=== PATIENT | female | born 1960 | race African-American/Black ===

== ENCOUNTER → 2017-07-25 | Outpatient (CLI) | payer OTHER, BC | END | disposition home or self-care (01) | LOC: MAMMO 13:53 | DX: Z12.31 Encounter for screening mammogram for malignant neoplasm of breast (principal); Z85.3 Personal history of malignant neoplasm of breast | CPT/HCPCS: 77067 ==

== ENCOUNTER 2019-12-04 12:03 | Emergency (ER) | payer OTHER, BC ==
[~2019-12-04] VITALS: Ht 160 cm; Wt 90.1 kg
[~2019-12-04 12:03] MED LIST: ACET-704 PO; CLOB15CR TP
--- NOTE | 2019-12-04 12:26 | PHYS DOC ---
Past Medical History Past Medical History: Cancer, Other Additional Past Medical Histor: BREAST CANCER Past Surgical History: , Other Additional Past Surgical Histo: LEFT MASTECTOMY,UTERINE FIBROIDS REMOVED Smoking Status: Never Smoker Alcohol Use: Rarely Drug Use: None General Adult EDM: Chief Complaint: ABDOMINAL PAIN HPI: HPI: Patient is a 59 year old female who presented to ER today for evaluation of right lower abdominal pain that started 2 days ago. Patient denies any nausea vomiting, no diarrhea, no cough or fever. Patient still have her appendix. Nothing makes the pain worse or better. Patient denies any urinary symptom. Patient has a history of breast cancer with status post left mastectomy. Patient is in remission. Review of Systems: Review of Systems: Constitutional: Denies fever or chills. [] Eyes: Denies change in visual acuity. [] HENT: Denies nasal congestion or sore throat. [] Respiratory: Denies cough or shortness of breath. [] Cardiovascular: Denies chest pain or edema. [] GI: Positive for abdominal pain, no nausea, vomiting, bloody stools or diarrhea. [] : Denies dysuria. [] Musculoskeletal: Denies back pain or joint pain. [] Integument: Denies rash. [] Neurologic: Denies headache, focal weakness or sensory changes. [] Endocrine: Denies polyuria or polydipsia. [] Lymphatic: Denies swollen glands. [] Psychiatric: Denies depression or anxiety. [] Heart Score: Risk Factors: Risk Factors: DM, Current or recent (<one month) smoker, HTN, HLP, family history of CAD, obesity. Risk Scores: Score 0 - 3: 2.5% MACE over next 6 weeks - Discharge Home Score 4 - 6: 20.3% MACE over next 6 weeks - Admit for Clinical Observation Score 7 - 10: 72.7% MACE over next 6 weeks - Early Invasive Strategies Allergies: Allergies: Allergies Coded Allergies Type Severity Reaction Last Updated Verified No Known Drug Allergies 05/03/15 No Physical Exam: PE: Constitutional: Well developed, well nourished, no acute distress, non-toxic appearance. [] HENT: Normocephalic, atraumatic, bilateral external ears normal, oropharynx moist, no oral exudates, nose normal. [] Eyes: PERRLA, EOMI, conjunctiva normal, no discharge. [] Neck: Normal range of motion, no tenderness, supple, no stridor. [] Cardiovascular:Heart rate regular rhythm, no murmur [] Lungs & Thorax: Bilateral breath sounds clear to auscultation [] Abdomen: Bowel sounds normal, soft, there is tenderness to palpation in the ri ght lower abdominal area, periumbilical area, suprapubic area, no masses, no pulsatile masses. [] Skin: Warm, dry, no erythema, no rash. [] Back: No tenderness, no CVA tenderness. [] Extremities: No tenderness, no cyanosis, no clubbing, ROM intact, no edema. [] Neurologic: Alert and oriented X 3, normal motor function, normal sensory function, no focal deficits noted. [] Psychologic: Affect normal, judgement normal, mood normal. [] Current Patient Data: Labs: Laboratory Tests Test 12/04/19 12:41 12/04/19 13:20 White Blood Count 5.1 x10^3/uL Red Blood Count 4.29 x10^6/uL Hemoglobin 13.2 g/dL Hematocrit 37.3 % Mean Corpuscular Volume 87 fL Mean Corpuscular Hemoglobin 31 pg Mean Corpuscular Hemoglobin Concent 35 g/dL Red Cell Distribution Width 13.8 % Platelet Count 269 x10^3/uL Neutrophils (%) (Auto) 56 % Lymphocytes (%) (Auto) 35 % Monocytes (%) (Auto) 7 % Eosinophils (%) (Auto) 1 % Basophils (%) (Auto) 1 % Neutrophils # (Auto) 2.9 x10^3/uL Lymphocytes # (Auto) 1.8 x10^3/uL Monocytes # (Auto) 0.4 x10^3/uL Eosinophils # (Auto) 0.1 x10^3/uL Basophils # (Auto) 0.1 x10^3/uL Prothrombin Time 15.6 SEC Prothromb Time International Ratio 1.3 Activated Partial Thromboplast Time 39 SEC Sodium Level 138 mmol/L Potassium Level 3.9 mmol/L Chloride Level 104 mmol/L Carbon Dioxide Level 24 mmol/L Anion Gap 10 Blood Urea Nitrogen 9 mg/dL Creatinine 0.6 mg/dL Estimated GFR (Cockcroft-Gault) 123.4 BUN/Creatinine Ratio 15 Glucose Level 86 mg/dL Calcium Level 8.8 mg/dL Total Bilirubin 1.1 mg/dL Aspartate Amino Transf (AST/SGOT) 23 U/L Alanine Aminotransferase (ALT/SGPT) 17 U/L Alkaline Phosphatase 70 U/L Total Protein 7.5 g/dL Albumin 3.3 g/dL Albumin/Globulin Ratio 0.8 Lipase 72 U/L Urine Collection Type Void Urine Color Yellow Urine Clarity Clear Urine pH 6.0 Urine Specific [place] 1.010 Urine Protein Negative mg/dL Urine Glucose (UA) Negative mg/dL Urine Ketones (Stick) Negative mg/dL Urine Blood Negative Urine Nitrite Negative Urine Bilirubin Negative Urine Urobilinogen Dipstick 0.2 mg/dL Urine Leukocyte Esterase Trace Urine RBC 0 /HPF Urine WBC Rare /HPF Urine Squamous Epithelial Cells Occ /LPF Urine Bacteria Few /HPF Urine Mucus Slight /LPF Current Medications Medications (Trade) Dose Ordered Sig/Lisa Route PRN Reason Start Time Stop Time Status Last Admin Dose Admin Iohexol (Omnipaque 300 Mg/ml) 100 ml 1X ONCE IV 12/04/19 13:30 12/04/19 13:31 DC 12/04/19 13:42 Info (CONTRAST GIVEN -- Rx MONITORING) 1 each PRN DAILY PRN MC SEE COMMENTS 12/04/19 13:45 12/06/19 13:44 EKG: EKG: [] Radiology/Procedures: Radiology/Procedures: [[facility] [address] [place], [place] [id number] IMAGING REPORT Signed PATIENT: ABIOLA LIVE ACCOUNT: [id number] : 1960 LOCATION: ER AGE: 59 SEX: F EXAM STATUS: REG ER ORD. PHYSICIAN: SHORTY CHATTERJEE DO REASON: RLQ PAIN PROCEDURE: CT ABD PELV W/ IV CONTRST ONLY CT scan of the abdomen and pelvis with contrast 12/04/2019 CLINICAL HISTORY: Right lower quadrant abdominal pain. TECHNIQUE: After the intravenous administration of 75 cc of Omnipaque 300 only, contiguous, 5 mm axial sections were obtained through the abdomen and pelvis. One or more of the following individualized dose reduction techniques were utilized for this study: 1. Automated exposure control. 2. Adjustment of the mA and/or kV according to patient size. 3. Use of iterative reconstruction technique. FINDINGS: Images through the lung bases demonstrate mild cardiomegaly. A 2.8 cm rounded low-attenuation lesion is seen involving the right lobe of liver which likely represents a hepatic cyst. The spleen, pancreas, adrenal glands and kidneys are within normal limits. The abdominal aorta tapers normally. The gallbladder is contracted. No free fluid or free air is seen within the abdomen. There is no evidence of bowel obstruction. There is a small umbilical hernia which measures 2.4 cm in size. The appendix is well-visualized and is within normal limits. Images through the pelvis demonstrate the urinary bladder distended with urine. Calcifications are seen within the pelvis consistent with phleboliths. A 3.2 cm oval-shaped fat-containing mass is seen within the right adnexa consistent with a dermoid cyst/teratoma. No free fluid is seen. Very mild S-shaped curvature of the thoracic lumbar spine is seen. Degenerative changes are seen involving the lower thoracic and throughout the lumbar spine. IMPRESSION: 1. 3.2 cm oval-shaped fat-containing mass is seen in the right adnexa consistent with a dermoid cyst/teratoma. 2. No acute abnormality is seen. Electronically signed by: Dewey Smith MD (12/04/2019 2:02 PM) [id number] DICTATED and SIGNED BY: DEWEY SMITH MD DATE: 12/04/19 140 Course & Med Decision Making: Course & Med Decision Making Pertinent Labs and Imaging studies reviewed. (See chart for details) Patient is a 59-year-old female who was evaluated in the ER due to right side abdominal pain, CT scan of her abdomen pelvic show she had a 3.2 cm cyst on the right adnexa area consistent with teratoma or ovarian cyst. Patient will be discharged home, she will follow-up with her delivery tech for further evaluation. At time of discharge patient denies any abdominal pain, no nausea vomiting, no fever. Dragon Disclaimer: Dragon Disclaimer: This electronic medical record was generated, in whole or in part, using a voice recognition dictation system. Departure Departure Impression: Primary Impression: Unspecified ovarian cyst, right side Disposition: 01 HOME, SELF-CARE Condition: STABLE Referrals: NO PCP (PCP) MARLEN LAUGHLIN Jr, MD PLEASE CALL THIS TUMBLER TENDER DOCTOR FOR FOLLOW UP NEXT WEEK. Patient Instructions: Ovarian Cyst Justicifation of Admission Dx: Justifications for Admission: Justification of Admission Dx: N/A SHORTY CHATTERJEE DO Dec 04, 2019 12:25
[2019-12-04 13:01] LABS: CALCIUM 8.8 mg/dL (8.5-10.1); CREATININE 0.6 mg/dL (0.6-1.0); GFR 123.4; POTASSIUM 3.9 mmol/L (3.5-5.1)
[2019-12-04 13:04] LABS: ALBUMIN 3.3 g/dL (3.4-5.0); ALBUMIN/GLOBULIN RATIO 0.8 (1.0-1.7); TOTAL BILIRUBIN 1.1 mg/dL (0.2-1.0); TOTAL PROTEIN 7.5 g/dL (6.4-8.2)
[2019-12-04 13:14] LABS: BASO # 0.1 x10^3/uL (0.0-0.2); BASO % 1 % (0-3); EOS # 0.1 x10^3/uL (0.0-0.7); EOS % 1 % (0-3); HEMATOCRIT 37.3 % (36.0-47.0); HEMOGLOBIN 13.2 g/dL (12.0-15.5); LYMPH # 1.8 x10^3/uL (1.0-4.8); LYMPH % 35 % (24-48); MEAN CORPUSCULAR HEMOGLOBIN 31 pg (25-35); MEAN CORPUSCULAR HGB CONC 35 g/dL (31-37); MEAN CORPUSCULAR VOLUME 87 fL (79-100); MONO # 0.4 x10^3/uL (0.0-1.1); MONO % 7 % (0-9); NEUT # 2.9 x10^3/uL (1.8-7.7); NEUT % 56 % (31-73); PLATELET COUNT 269 x10^3/uL (140-400); RED BLOOD COUNT 4.29 x10^6/uL (3.50-5.40); RED CELL DISTRIBUTION WIDTH 13.8 % (11.5-14.5); WHITE BLOOD COUNT 5.1 x10^3/uL (4.0-11.0)
[2019-12-04 13:25] LABS: PROTHROMBIN TIME PATIENT 15.6 SEC (11.7-14.0)
[2019-12-04] MEDS ORDERED: IOHEXOL 300 MG/ML 100ML VIAL. IV ONE (13:30)
[2019-12-04 13:36] LABS: BILIRUBIN,URINE NEGATIVE (NEG); CLARITY,URINE CLEAR; COLOR,URINE YELLOW; NITRITE,URINE NEGATIVE (NEG); PROTEIN,URINE NEGATIVE (NEG-TRACE); UROBILINOGEN,URINE 0.2 mg/dL (0.2 mg/dL)
[2019-12-04 13:45] VITALS: BP 146/70
[2019-12-04] MEDS ORDERED: CONTRAST GIVEN. MC PRN (13:45)
[2019-12-04 13:54] LABS: BACTERIA,URINE FEW /HPF (0-FEW); RBC,URINE 0 /HPF (0-2); SQUAMOUS EPITHELIAL CELL,UR OCC /LPF; WBC,URINE RARE /HPF (0-4)
--- NOTE | 2019-12-04 14:05 | RAD ---
CT scan of the abdomen and pelvis with contrast 12/04/2019 CLINICAL HISTORY: Right lower quadrant abdominal pain. TECHNIQUE: After the intravenous administration of 75 cc of Omnipaque 300 only, contiguous, 5 mm axial sections were obtained through the abdomen and pelvis. One or more of the following individualized dose reduction techniques were utilized for this study: 1. Automated exposure control. 2. Adjustment of the mA and/or kV according to patient size. 3. Use of iterative reconstruction technique. FINDINGS: Images through the lung bases demonstrate mild cardiomegaly. A 2.8 cm rounded low-attenuation lesion is seen involving the right lobe of liver which likely represents a hepatic cyst. The spleen, pancreas, adrenal glands and kidneys are within normal limits. The abdominal aorta tapers normally. The gallbladder is contracted. No free fluid or free air is seen within the abdomen. There is no evidence of bowel obstruction. There is a small umbilical hernia which measures 2.4 cm in size. The appendix is well-visualized and is within normal limits. Images through the pelvis demonstrate the urinary bladder distended with urine. Calcifications are seen within the pelvis consistent with phleboliths. A 3.2 cm oval-shaped fat-containing mass is seen within the right adnexa consistent with a dermoid cyst/teratoma. No free fluid is seen. Very mild S-shaped curvature of the thoracic lumbar spine is seen. Degenerative changes are seen involving the lower thoracic and throughout the lumbar spine. IMPRESSION: 1. 3.2 cm oval-shaped fat-containing mass is seen in the right adnexa consistent with a dermoid cyst/teratoma. 2. No acute abnormality is seen. Electronically signed by: Dewey Smith MD (12/04/2019 2:02 PM) [id number]
== END 2019-12-04 15:01 | disposition home or self-care (01) ==
LOC: ER 12:03
DX: N83.201 Unspecified ovarian cyst, right side (principal); Z90.12 Acquired absence of left breast and nipple
CPT/HCPCS: 36415; 74177; 80053; 81001; 83690; 85025; 85610; 85730; 87086; 99285; Q9967

== ENCOUNTER → 2020-01-25 | Outpatient (CLI) | payer OTHER, BC ==
[~2020-01-25] MED LIST changes: +HYDR-2761 PO; +MULT-496 PO
--- NOTE | 2020-01-25 13:50 | EKG ---
[facility] [address] [place] [address] Test Date: 2020-01-25 Test Time: 13:46:49 Pat Name: ABIOLA LIVE Department: Room: Gender: F Park Interpretive Specialist: DESMOND : 1960 Requested By: XIN BAUMAN Order Number: [id number] Reading MD: Fredo Neal Measurements Intervals [place] Rate: 66 P: 67 IL: 168 QRS: -26 QRSD: 90 T: 27 QT: 428 QTc: 451 Interpretive Statements SINUS RHYTHM LEFTWARD AXIS OTHERWISE NORMAL ECG RI6.01 Compared to ECG 05/03/2015 11:53:50 T-wave abnormality no longer present Electronically Signed On 01-29-2020 9:46:47 CDT by Fredo Neal
[2020-01-25 13:57] LABS: BASO % 0 % (0-3); EOS % 1 % (0-3); HEMATOCRIT 37.4 % (36.0-47.0); LYMPH # 1.8 x10^3/uL (1.0-4.8); LYMPH % 30 % (24-48); MEAN CORPUSCULAR HEMOGLOBIN 30 pg (25-35); MEAN CORPUSCULAR HGB CONC 35 g/dL (31-37); MEAN CORPUSCULAR VOLUME 87 fL (79-100); MONO # 0.4 x10^3/uL (0.0-1.1); MONO % 6 % (0-9); NEUT # 3.8 x10^3/uL (1.8-7.7); NEUT % 63 % (31-73); PLATELET COUNT 300 x10^3/uL (140-400); RED CELL DISTRIBUTION WIDTH 13.5 % (11.5-14.5); WHITE BLOOD COUNT 6.1 x10^3/uL (4.0-11.0)
[2020-01-25 13:59] LABS: BILIRUBIN,URINE NEGATIVE (NEG); CLARITY,URINE CLEAR; COLOR,URINE YELLOW; NITRITE,URINE NEGATIVE (NEG); PROTEIN,URINE NEGATIVE (NEG-TRACE); UROBILINOGEN,URINE 0.2 mg/dL (0.2 mg/dL)
[2020-01-25 14:08] LABS: SQUAMOUS EPITHELIAL CELL,UR MOD /LPF
[2020-01-25 14:10] LABS: BACTERIA,URINE FEW /HPF (0-FEW)
[2020-01-25 14:19] LABS: ALBUMIN 3.5 g/dL (3.4-5.0); ALBUMIN/GLOBULIN RATIO 0.8 (1.0-1.7); CALCIUM 9.2 mg/dL (8.5-10.1); CREATININE 0.8 mg/dL (0.6-1.0); GFR 88.5; POTASSIUM 3.7 mmol/L (3.5-5.1); TOTAL BILIRUBIN 0.7 mg/dL (0.2-1.0)
--- NOTE | 2020-01-29 10:50 | NUR ---
Faxed pretesting results to Dr Fischer's office.
== END | disposition home or self-care (01) ==
LOC: SURGPAT 12:11
PROVIDERS: ATTEND Obstetrics & Gynecology
DX: Z01.818 Encounter for other preprocedural examination (principal); Z11.59 Encounter for screening for other viral diseases
CPT/HCPCS: 36415; 80053; 81001; 85025; 93005; U0003

== ENCOUNTER 2020-01-30 06:07 | Observation (INO) | payer OTHER, BC ==
[~2020-01-30] VITALS: Ht 160 cm; Wt 91.8 kg
[2020-01-30] VITALS (12 sets, daily range): BP systolic 98–125; BP diastolic 52–71
[~2020-01-30 06:07] MED LIST changes: -HYDR-2761 PO
[2020-01-30] MEDS: IV RINGERS,LACTATED 1000ML 1,000 ML IV SCH ×2 (06:53→11:20)
[2020-01-30] MEDS ORDERED: PROCHLORPERAZINE 10 MG/2 ML VIAL. IV PRN (07:00)
[2020-01-30] MEDS ORDERED: fentaNYL PF VIAL 100 MCG/2 ML VIAL IV PRN ×2 (07:00)
[2020-01-30] MEDS ORDERED: HYDROmorphone 2 MG/ML VIAL IV PRN (07:00)
[2020-01-30] MEDS ORDERED: LIDOCAINE 1% PF 2 ML VIAL. ID PRN (07:00)
[2020-01-30] MEDS ORDERED: MORPHINE SULFATE 2 MG/ML VIAL. IV PRN ×2 (07:00→11:15)
[2020-01-30] MEDS ORDERED: ONDANSETRON PF 4 MG/2 ML VIAL. IV PRN ×2 (07:00→11:15)
[2020-01-30] MEDS ORDERED: ROCURONIUM 50 MG/5 ML VIAL. ONE ×2 (07:04→08:11)
[2020-01-30] MEDS ORDERED: fentaNYL PF VIAL 250 MCG/5 ML VIAL ONE (07:04)
[2020-01-30] MEDS ORDERED: BUPIVACAINE-EPI 0.25%-1:200000 MPF 30 ML VIAL. ONE (07:04)
[2020-01-30] MEDS ORDERED: MIDAZOLAM HCL/PF 2 MG/2 ML VIAL. ONE (07:04)
[2020-01-30] MEDS ORDERED: ESTROGENS, CONJ VAGINAL CREAM 30GM TUBE. ONE (07:04)
[2020-01-30] MEDS ORDERED: INDIGOTINDISULFONATE SODIUM 40 MG/5 ML AMPUL. ONE (07:04)
[2020-01-30] MEDS ORDERED: DEXAMETHASONE SOD PHOS 4 MG/ML VIAL ONE (07:58)
[2020-01-30] MEDS ORDERED: ONDANSETRON PF 4 MG/2 ML VIAL. ONE (07:58)
[2020-01-30] MEDS ORDERED: NEOSTIGMINE METHYLSULFATE 5 MG/5 ML SYRINGE. ONE (08:44)
[2020-01-30] MEDS ORDERED: GLYCOPYRROLATE 1 MG/5 ML VIAL. ONE (08:44)
[2020-01-30] MEDS ORDERED: PHENYLEPHRINE 10 MG/ML VIAL. ONE (08:53)
[2020-01-30] MEDS ORDERED: KETOROLAC 30 MG/ML VIAL. ONE (09:05)
[2020-01-30] MEDS ORDERED: PROPOFOL 10 MG/ML (20ML) VIAL. IV ONE (10:37)
[2020-01-30] MEDS ORDERED: fentaNYL PF VIAL 100 MCG/2 ML VIAL ONE (10:45)
--- NOTE | 2020-01-30 11:09 | PDOC ---
BRIEF OPERATIVE NOTE Date: Jan 30, 2020 Pre-Op Diagnosis right adnexal mass Post-Op Diagnosis normal uterus, bilateral tubes and ovaries; right pelvic mass not adnexal Procedure Performed LAVH/BSO Surgeon Dr. Bauman Gardening Supervisor SAM Clark Anesthesiologist Dr. Aragon Anesthesia Type: General Blood Loss 500cc IV Fluid 1600cc Urine Output 700cc clear via lechuga Specimens Obtained cervix, uterus, bilateral tubes and ovaries Findings normal uterus, bilateral tubes and ovaries; 3cm pelvic mass right side at groin area near pubic bone/ant abdominal wall area laterally; got intraop consult with the pics with Dr. Baca and he recommended MRI in 6 week post op period and seeing him as an outpatient to follow up after the MRI to better evaluate it Complications none Operative Note [id number] XIN BAUMAN MD Jan 30, 2020 11:09
[2020-01-30] MEDS ORDERED: MAG HYDROX/ALUMINUM HYD/SIMETH 30 ML ORAL.SUSP PO PRN (11:15)
[2020-01-30] MEDS ORDERED: CALCIUM CARBONATE 500 MG TAB.CHEW PO PRN (11:15)
[2020-01-30] MEDS ORDERED: diphenhydrAMINE HCL 25 MG CAPSULE PO PRN (11:15)
[2020-01-30] MEDS ORDERED: ZOLPIDEM 5 MG TABLET. PO PRN (11:15)
[2020-01-30] MEDS ORDERED: LACTULOSE 20 GM/30 ML SOLUTION. PO PRN (11:15)
[2020-01-30] MEDS ORDERED: MAGNESIUM HYDROXIDE 2,400 MG/30 ML ORAL.SUSP. PO PRN (11:15)
[2020-01-30] MEDS ORDERED: NALOXONE 0.4 MG/ML VIAL. IV PRN (11:15)
[2020-01-30] MEDS ORDERED: diphenhydrAMINE 50 MG/ML VIAL IV PRN (11:15)
[2020-01-30] MEDS ORDERED: oxyCODONE/APAP 5/325 1 TAB TABLET PO PRN (11:15)
[2020-01-30] MEDS ORDERED: SIMETHICONE 80 MG TAB.CHEW PO PRN (11:15)
[2020-01-30] MEDS ORDERED: HYDROcodone/APAP 5/325MG 1 TAB TABLET PO PRN (11:15)
[2020-01-30] MEDS ORDERED: 0.9 % SODIUM CHLORIDE 10 ML DISP.SYRIN. IV PRN (11:15)
[2020-01-30 11:53] LABS: HEMATOCRIT 31.2 % (36.0-47.0); HEMOGLOBIN 10.8 g/dL (12.0-15.5); RED BLOOD COUNT 3.59 x10^6/uL (3.50-5.40); RED CELL DISTRIBUTION WIDTH 13.5 % (11.5-14.5); WHITE BLOOD COUNT 12.6 x10^3/uL (4.0-11.0)
--- NOTE | 2020-01-30 12:30 | NUR ---
Pt admitted from PACU to room 331 per bed. Pt assessed and oriented to room and frequent VS started. Pt drowsy from S/P LAVH but arousable to verbal stimulus. Incisions D/I and pt denies pain at this time, will continue to monitor and support.
--- NOTE | 2020-01-30 14:10 | OP ---
DATE OF SURGERY: 01/30/2020 The patient is a 59-year-old female. PREOPERATIVE DIAGNOSES: Right adnexal mass with history of a mastectomy and breast cancer, desiring definitive therapy. POSTOPERATIVE DIAGNOSES: She actually had a normal uterus, bilateral tubes and ovaries. It was not an adnexal mass, but she does have about a 3 cm pelvic mass that I had an intraoperative consult with Dr. Baca with suggesting an MRI in the postoperative period. The 6-week postop period and following up with him as an outpatient. Unsure as to whether it is a lipoma or another soft tissue mass, possible hernia or what, it did feel kind of rubbery and it was not solid-solid, but it was not liquid either, it was like a soft tissue or rubbery consistency. PROCEDURE: Laparoscopic-assisted vaginal hysterectomy, bilateral salpingo-oophorectomy. SURGEON: Xin Fischer MD DIGITAL EXPERIENCE MANAGER: SAM Clark ANESTHESIOLOGIST: Rowdy Bullock MD ANESTHESIA: General. BLOOD LOSS: 500 mL. URINE OUTPUT: 700 mL clear via Curran catheter. INTRAVENOUS FLUIDS: 1600 mL of crystalloid. SPECIMENS: Cervix, uterus, bilateral tubes and ovaries. FINDINGS: Again, she had a normal right upper quadrant, mild adhesions over on the right side where her colon and appendix would be. She did have a normal uterus, tubes and ovaries. A 3 cm right left-sided pelvic mass at the groin area just above the pubic bone near the anterior abdominal wall laterally. Again, the intraoperative consult with the pictures with Dr. Baca recommended an MRI in the 6-week postoperative period to evaluate it further and then he would consult as an outpatient. COMPLICATIONS: None. DESCRIPTION OF PROCEDURE: This patient was taken to the operating room where general anesthesia was placed. The patient was placed in the dorsal lithotomy position in [facility]. The patient's abdomen and vagina were both prepped and draped in the normal sterile fashion and a Curran catheter had been inserted under sterile technique. Upon my arrival, a timeout was performed. Once everyone agreed on the patient, site, procedure, antibiotics, the procedure was initiated. A bivalve speculum was placed in the patient's vagina. A single-tooth tenaculum was used to grasp the anterior lip of the cervix. A 10 mL of 0.25% Marcaine with epinephrine was used to circumferentially inject around the cervix for both hemodissection and hemostatic purposes later. The Valtchev uterine manipulator was placed through the endocervical os, locked on the single tooth tenaculum and the bivalve speculum was then removed. Top gloves were discarded and changed. Attention was then turned to the abdomen where a left upper quadrant entry was planned as she had a small umbilical reducible hernia present on exam even in the office and the patient was aware, so a small incision was made and just under the rib cage and mid area down a couple of centimeters carried down to the underlying layer with a curved Aggie. The 5 mm Visiport was used to directly enter the abdominal cavity. Opening patient pressure was 3-4 mmHg. Carbon dioxide gas was used to then appropriately insufflate the abdominal cavity to maintain a pressure of 15 mmHg. The patient was placed in Trendelenburg position. The umbilical area did not have any bowel or anything stuck up in it. It did appear to have a fascial defect with hernia, but it was clear, but we avoided that area anyway. We placed right and left lower quadrant ports. Finding an area clear of any vasculature, making a small incision and placing 5 mm atraumatic trocars in under direct visualization without difficulty. A 4-5 mL of air was placed in the trocar cuffs of these. The camera was then moved to look at the left upper quadrant port, it was clear, so 4-5 mL of air was placed in this cuff as well. At this point, the camera was moved back to the left upper quadrant, the patient was placed in Trendelenburg position and the procedure was initiated. The left tube and ovary were elevated. They were small atrophic and normal. Finding the vessel and the ureter low, staying high on the ovary, hugging the ovary with the LigaSure, cauterizing and cutting, going under the tube over to the uterus, crossing the left round ligament and hugging the uterus and staying down on that side. This was done exactly the same on the right side. The right tube and ovary were actually normal. There was no right adnexal mass as the sonogram had suggested. There was a 3 cm pelvic mass, very lateral to the adnexa that was down on the sidewall and just under the pubic bone. I was unsure whether it was the hernia or a lipoma or what it was. I did end up after taking the tube and ovary off or getting it taking the edge of the LigaSure, the monopolar hook and just incising the peritoneum and it appeared to be soft tissue, it was not liquidy, but it was not firm and solid, it was more kind of rubbery or able to be kind of ____ soft tissue like. At this point, we did call to see if any general surgeons were in the house and Dr. Baca did come down during the case later with the above recommendations. So, the right tube and ovary were elevated again finding the vessel and ureter low, staying high on the right ovary, hugging it, cauterizing and cutting, taking the right tube and ovary out, going down and getting the right round ligament and hugging and staying on that cervix posteriorly. The bladder flap and there were some bladder adhesions from her these were taken down with the monopolar hook elevating them and taking them down and they reduced easily and then taking it over to the left side, taking the bladder down and then going down the left side to the uterosacral ligament. The right side, I went down, I did not go down quite as far as I could not tell whether the bladder was lower, but I got around the uterine and took it down posteriorly as well. Once this was done and the uterus was blanched and completely free and there was nothing behind it, we took out all instruments and attention was turned below. The single tooth and Valtchev were removed. A weighted speculum was placed in the patient's vagina. Thyroid Emil clamps were placed on the anterior and posterior lips of the cervix respectively. She had a very narrow vagina, but we were able to make the circumferential incision in the cervix with the scalpel. The tip of the suction was used to gently push up the anterior bladder peritoneum and it was reduced sharply and bluntly, first staying right on the cervix and gently peeling it up and then taking open 4 x 4 Ray-Sandra and gently pushing up the anterior bladder peritoneum and it reduced nicely. The posterior peritoneum was difficult to enter and so initially I just put a stitch on the posterior vaginal mucosa and tagged it and left the needle on and finally was able to get in and placed a long weighted speculum in the posterior cul-de-sac. Curved Oanh clamps x 2 were placed on the left uterosacral ligament where they were doubly clamped with curved Heaneys, cut with Jimenez scissors and suture ligated x 2 with 0 Vicryl. Second one was taken through the vaginal cuff securing uterosacral ligament to the vaginal cuff, tagged with a straight Aggie clamp and the needle was cut and passed off. This was done exactly the same on the right side, double clamping the uterosacrals with curved Oanh's, cutting with curved Jimenez scissors, suture ligating x 2, taking the second one through the vaginal cuff securing uterosacral ligament to the vaginal cuff, tagging it with a straight Aggie clamp and cutting and passing the needle off. Once I was in anteriorly and I could feel around on both sides, I was able to get a right angle clamp around the remaining pedicles on both sides. So, initially I did the right side and I used the vaginal LigaSure to cauterize and cut the remaining pedicle. This was done exactly the same on the left and then the cervix, uterus, bilateral tubes and ovaries were delivered in total and passed off for permanent pathology. The anterior bladder peritoneum could not be identified, it was so high and somewhat irregular due to the adhesions we took down from her , but I did place an Allis on the anterior cuff and elevated it and I used a sponge stick to examine the pedicles, there was some slight bleeding on the left uterosacral ligament, a burlisher was placed here with a 2-0 Vicryl interrupted suture and then there was a tiny bit of bleeding right from the anterior I could see a vessel, so it was clamped and cauterized with the vaginal LigaSure. Once this was done and the sponge stick was used to examine the pedicles, the remaining pedicles looked dry. I was able to get the posterior peritoneum and secure it to the vaginal cuff and I took that needle back up and tied it to that posterior cuff tag and then the needle was cut and passed off and it was tagged with a curved Aggie clamp, so I was able to secure that posterior peritoneum to the vaginal cuff finally. Once I did that, the short weighted vaginal speculum was replaced in for that. Again, the pedicles all looked dry, 2-0 Vicryl was taken under just the anterior cuff because I did not identify the anterior bladder peritoneum. The left uterosacral ligament, posterior peritoneum and right uterosacral ligament, thus closing the peritoneum in a pursestring like fashion. Once this was done, the right and left uterosacral tags were clipped. The vaginal cuff was closed in an anterior to posterior running locked fashion and tied to the posterior cuff tag. A few interrupted stitches were placed on the cuff ____ for hemostasis and strength. Once this was done, the cuff looked great. All instruments counts were correct x 2 vaginally, so all gloves were discarded and changed and attention was turned back above for a second look. Copious irrigation did reveal hemostasis. I did take the LigaSure and cauterized the edge of the vaginal cuff posteriorly in one tiny spot right in the middle with excellent results. The remainder of it looked good. The right and left pericolic gutters were clear. The cuff was good, both ovarian pedicles were good. I took pictures of that pelvic mass again. Tisseel was placed over the ovarian pedicles and vaginal cuff with excellent results. Again, it remained hemostatic. Gas was released and it was watched, it was still hemostatic, so the 4-5 mL of air were taken out of all 3 trocars. Again, the cuff still remained hemostatic after doing all this, so the right and left lower quadrant ports were taken out under direct visualization. They were hemostatic. Gas was then further released from that left upper quadrant and then it was removed. All three port sites were closed with 4-0 nylon at the skin and injected with local. Again, all sponge, lap and needle counts were correct x 2 by OR personnel. The patient was awakened from anesthesia and is being brought to recovery room in stable condition. XIN FISCHER MD DR: NAINA/lilly JOB#: [id number] / [id number]
--- NOTE | 2020-01-30 17:50 | NUR ---
Pt ate some chicken noodle soup, some crackers and some apple juice. She felt nauseated after about 30 minutes, she vomited approx. 200 cc of emesis. Zofran 4mg IV given
--- NOTE | 2020-01-30 20:30 | NUR ---
Pt tired crackers & apple juice again. Said it made her a little nauseated. Will stick with ice chips for now. Pt does not want nausea med at this time. Having very little discomfort at this time.
[2020-01-31 02:15] VITALS: BP 116/43
[2020-01-31 06:00] VITALS: BP 104/56
[2020-01-31 07:49] LABS: CREATININE 0.6 mg/dL (0.6-1.0); GFR 123.4
[2020-01-31 09:20] VITALS: BP 109/62
--- NOTE | 2020-01-31 11:36 | PDOC ---
SURGICAL PROGRESS NOTE DATE: 01/31/20 TIME: 11:29 Subjective Pt doing well without complaints. Tolerating regular diet without n/v, ambulating well, voiding without catheter, scant VB and minimal pain. Vital Signs Vital Signs Date Time Temp Pulse Resp B/P (MAP) Pulse Ox O2 Delivery O2 Flow Rate FiO2 01/31/20 06:00 98.8 76 20 104/56 (72) Room Air 98.8 01/31/20 02:15 97 01/30/20 11:35 10 I&O Intake and Output 01/31/20 07:00 Intake Total 4370 ml Output Total 3550 ml Balance 820 ml Intake Oral 320 ml IV Total 4050 ml Output Urine Total 2850 ml Emesis 200 ml Estimated Blood Loss 500 ml PATIENT HAS A ESTRELLA: No General: Alert, Oriented X3, Cooperative HEENT: Atraumatic Heart: Regular rate Abdomen: Soft, No tenderness Extremities: Other (all 3 port sites c/d/i) Skin: No rashes, No breakdown, No significant lesion Neuro: Normal speech Psych/Mental Status: Mental status NL, Mood NL Labs Laboratory Tests Test 01/30/20 11:30 01/31/20 07:20 White Blood Count 12.6 x10^3/uL (4.0-11.0) Red Blood Count 3.59 x10^6/uL (3.50-5.40) Hemoglobin 10.8 g/dL (12.0-15.5) Hematocrit 31.2 % (36.0-47.0) 27.1 % (36.0-47.0) Mean Corpuscular Volume 87 fL (79-100) Mean Corpuscular Hemoglobin 30 pg (25-35) Mean Corpuscular Hemoglobin Concent 35 g/dL (31-37) Red Cell Distribution Width 13.5 % (11.5-14.5) Platelet Count 261 x10^3/uL (140-400) Sodium Level 139 mmol/L (136-145) Potassium Level 4.0 mmol/L (3.5-5.1) Chloride Level 106 mmol/L (98-107) Carbon Dioxide Level 26 mmol/L (21-32) Anion Gap 7 (6-14) Blood Urea Nitrogen 9 mg/dL (7-20) Creatinine 0.6 mg/dL (0.6-1.0) Estimated GFR (Cockcroft-Gault) 123.4 Glucose Level 93 mg/dL (70-99) Calcium Level 8.0 mg/dL (8.5-10.1) Laboratory Tests Test 01/30/20 11:30 01/31/20 07:20 White Blood Count 12.6 x10^3/uL (4.0-11.0) Red Blood Count 3.59 x10^6/uL (3.50-5.40) Hemoglobin 10.8 g/dL (12.0-15.5) Hematocrit 31.2 % (36.0-47.0) 27.1 % (36.0-47.0) Mean Corpuscular Volume 87 fL (79-100) Mean Corpuscular Hemoglobin 30 pg (25-35) Mean Corpuscular Hemoglobin Concent 35 g/dL (31-37) Red Cell Distribution Width 13.5 % (11.5-14.5) Platelet Count 261 x10^3/uL (140-400) Sodium Level 139 mmol/L (136-145) Potassium Level 4.0 mmol/L (3.5-5.1) Chloride Level 106 mmol/L (98-107) Carbon Dioxide Level 26 mmol/L (21-32) Anion Gap 7 (6-14) Blood Urea Nitrogen 9 mg/dL (7-20) Creatinine 0.6 mg/dL (0.6-1.0) Estimated GFR (Cockcroft-Gault) 123.4 Glucose Level 93 mg/dL (70-99) Calcium Level 8.0 mg/dL (8.5-10.1) I have reviewed the following labs, vitals, nursing Cardiovascular: HTN Pulmonary: No pertinent hx Heme/Onc: Anemia NOS Assessment/Plan POD#1 s/p IVAN/BSO pelvic mass will need to be evaluated outpt with MRI and consult with Dr. Baca Routine po care d/c to home later today already has hydrocodone at home ok for OTC iburpofen as needed as well OTC iron daily with food for anemia NO driving while on narcotic pain meds keep scheduled follow up in one week in office with myself call or return sooner for any other questions or concerns not limited to but inluding pain unrelieved with pain meds, increased or unexplained vaginal bleeding or T>100.4 Justicifation of Admission Dx: Justifications for Admission: Justification of Admission Dx: Yes XIN BAUMAN MD Jan 31, 2020 11:36
--- NOTE | 2020-01-31 11:40 | PDOC3 ---
Discharge Summary Visit Information Date of Admission: Jan 30, 2020 Date of Discharge: Jan 31, 2020 Final Diagnosis pelvic mass, breast cancer s/p mastectomy Brief Hospital Course Allergies Allergies Coded Allergies Type Severity Reaction Last Updated Verified No Known Drug Allergies 01/25/20 No Vital Signs Vital Signs Date Time Temp Pulse Resp B/P (MAP) Pulse Ox O2 Delivery O2 Flow Rate FiO2 01/31/20 06:00 98.8 76 20 104/56 (72) Room Air 98.8 01/31/20 02:15 97 01/30/20 11:35 10 Lab Results Laboratory Tests Test 01/30/20 11:30 01/31/20 07:20 White Blood Count 12.6 x10^3/uL (4.0-11.0) Red Blood Count 3.59 x10^6/uL (3.50-5.40) Hemoglobin 10.8 g/dL (12.0-15.5) Hematocrit 31.2 % (36.0-47.0) 27.1 % (36.0-47.0) Mean Corpuscular Volume 87 fL (79-100) Mean Corpuscular Hemoglobin 30 pg (25-35) Mean Corpuscular Hemoglobin Concent 35 g/dL (31-37) Red Cell Distribution Width 13.5 % (11.5-14.5) Platelet Count 261 x10^3/uL (140-400) Sodium Level 139 mmol/L (136-145) Potassium Level 4.0 mmol/L (3.5-5.1) Chloride Level 106 mmol/L (98-107) Carbon Dioxide Level 26 mmol/L (21-32) Anion Gap 7 (6-14) Blood Urea Nitrogen 9 mg/dL (7-20) Creatinine 0.6 mg/dL (0.6-1.0) Estimated GFR (Cockcroft-Gault) 123.4 Glucose Level 93 mg/dL (70-99) Calcium Level 8.0 mg/dL (8.5-10.1) Laboratory Tests Test 01/31/20 07:20 Hematocrit 27.1 % (36.0-47.0) Sodium Level 139 mmol/L (136-145) Potassium Level 4.0 mmol/L (3.5-5.1) Chloride Level 106 mmol/L (98-107) Carbon Dioxide Level 26 mmol/L (21-32) Anion Gap 7 (6-14) Blood Urea Nitrogen 9 mg/dL (7-20) Creatinine 0.6 mg/dL (0.6-1.0) Estimated GFR (Cockcroft-Gault) 123.4 Glucose Level 93 mg/dL (70-99) Calcium Level 8.0 mg/dL (8.5-10.1) Brief Hospital Course Ms. Monsivais is a 59 old female who presented with pelvic pain and adnexal mass fount on CT from ER desiring definitive therapy with hysterectomy and ovaries out ronnie with breast cancer history. She underwent LAVH/BSO yesterday, a 3cm right sided soft tissue pelvic mass was seen, but was not adnexal at all but lateral to it. Dr. Baca was asked to look at it and requested MRI later and outpatient consult with him after the MRI as was stable and non-emergent so we would know what we were dealing with. Pt aware of all of this and ok with the plan now. She has had an unremarkable postoperative course and is AFVSS, scant VB, voiding without catheter, tolerating pO and will be discharged to home later today. She has some anemia due to blood loss but is stable and will do iron daily with food at home is all. Assessment Assessment POD#1 s/p IVAN/BSO pelvic mass will need to be evaluated outpt with MRI and consult with Dr. Baca Routine po care d/c to home later today already has hydrocodone at home ok for OTC iburpofen as needed as well OTC iron daily with food for anemia NO driving while on narcotic pain meds keep scheduled follow up in one week in office with myself call or return sooner for any other questions or concerns not limited to but inluding pain unrelieved with pain meds, increased or unexplained vaginal blee ding or T>100.4 Discharge Information Condition at Discharge: Stable Follow Up: Weeks Disposition/Orders: D/C to Home Scheduled Clobetasol Propionate (Clobetasol Propionate) 15 Gm Cream..g., 15 GM TP daily prn, (Reported) Entered as Reported by: TONI AGUILA on 11/28/15 0728 Last Taken: Unknown Dose on 01/29/20 Last Action: HELD on 01/30/20 0742 by XIN BAUMAN Multivitamin (Daily Value) 1 Each Tablet, 1 TAB PO DAILY for SUPPLIMENT for 30 Days, #30 Ref 0 (Reported) Entered as Reported by: CHE SINCLAIR on 01/25/20 1230 Last Taken: Unknown Dose on 01/17/20 Last Action: HELD on 01/30/20 0742 by XIN BAUMAN Patient Instructions Patient Instructions POD#1 s/p IVAN/BSO pelvic mass will need to be evaluated outpt with MRI and consult with Dr. Baca Routine po care d/c to home later today already has hydrocodone at home ok for OTC iburpofen as needed as well OTC iron daily with food for anemia NO driving while on narcotic pain meds keep scheduled follow up in one week in office with myself call or return sooner for any other questions or concerns not limited to but inluding pain unrelieved with pain meds, increased or unexplained vaginal bleeding or T>100.4 Justicifation of Admission Dx: Justifications for Admission: Justification of Admission Dx: Yes XIN BAUMAN MD Jan 31, 2020 11:40
[2020-01-31 14:13] VITALS: BP 97/52
--- NOTE | 2020-01-31 14:52 | NUR ---
pt voiding and taking po pain meds .Pt to be discharge to home with family
[2020-01-31] MEDS ORDERED: HYDR-2761 PO (15:05)
--- NOTE | 2020-01-31 18:06 | PATHOLOGY ---
[facility] Accession Number: [id number] . 01 Material submitted: . uterus - UTERUS,CERVIX,BILATERAL FALLOPIAN TUBES AND OVARIES . 01 Clinical history: . RLQ pain, adnexal mass . 02 Diagnosis: Uterus and attached bilateral fallopian tubes and ovaries, laparoscopic assisted vaginal hysterectomy with bilateral salpingo-oophorectomy: - Endometrial polyps (5), the largest measuring 2.6 cm in greatest dimension. - Mild chronic cervicitis, focal. - Atrophic endometrium. - Adenomyosis, uterine corpus, subbasal. - Intramural leiomyoma, uterine corpus, measuring 0.5 cm. - Congestion of bilateral fallopian tubes. - Bilateral ovaries showing no significant pathologic abnormalities. (JPM:edilson; 01/31/2020) [facility] 01/31/2020 1603 Local . 02 Comment: There is no atypia or evidence of malignancy. (JPM:edilson; 01/31/2020) . 02 Electronically signed: . Sascha Leavitt MD, Pathologist NPI- [id number] . 01 Gross description: . The specimen is received in formalin labeled "Kate Monsivais, uterus, cervix, bilateral fallopian tubes and ovaries". Received is a 69 g, 9.8 x 4.5 x 3.3 cm uterus with attached cervix and attached adnexa, weighing 5 g each. The uterine serosa is pink-spivey and smooth in appearance. The 0.7 cm cervical os is surrounded by pink-spivey, smooth to slightly disrupted ectocervical mucosa. The uterus is oriented using the peritoneal reflection and the anterior paracervical margin is inked black. The uterus is opened laterally to reveal a pink-spivey, corrugated endocervical canal measuring 3.0 cm in length. The endometrial cavity is triangular measuring 5.7 cm in length by 2.8 cm in width. The endometrium is pale spivey, glistening in appearance and measures 0.1 cm in thickness. At the base and fundal aspects of the endometrial cavity, there are five endometrial polyps identified ranging in size from 0.6 x 0.5 x 0.2 to 2.6 x 1.2 x 0.5 cm in greatest dimensions. The polyps are removed and the new margins are inked black. Serial sectioning reveals a spivey-pink, trabeculated myometrium measuring up to 1.3 cm in thickness displaying a single intramural fibroid measuring 0.5 cm. . The left adnexa consists of a fimbriated fallopian tube measuring 4.7 cm in length by up to 0.5 cm in diameter attached to a 2.2 x 1.2 x 1.0 cm ovary. Sectioning through the fallopian tube reveals a patent lumen and the fallopian tube appears grossly unremarkable. The ovarian surface displays a well-circumscribed, slightly raised white nodule measuring 0.3 cm. Sectioning through the ovary reveals pale spivey, normal ovarian stroma. . The right adnexa consists of a fimbriated fallopian tube measuring 4.6 cm in length by up to 0.6 cm in diameter attached to a 2.0 x 1.6 x 1.2 cm ovary. Sectioning through the fallopian tube reveals a patent lumen and the fallopian tube appears grossly unremarkable. The ovarian surface displays two slightly raised, white nodules measuring 0.3 and 0.5 cm in maximum dimensions. Sectioning through the ovary reveals pale spivey, normal ovarian stroma. The specimen is submitted representatively as follows: . A1 12:00 cervix A2 6:00 cervix A3 anterior endomyometrium A4 posterior endomyometrium A5 smaller 3 endometrial polyps, intact A6 one bisected endometrial polyp A7 one trisected endometrial polyp A8 intramural fibroid A9 left adnexa, to include a section of the ovary through the aforementioned serosal nodule A10 right adnexa, to include a section of the ovary through the aforementioned serosal nodules. (CAA; 01/30/2020) [facility] 01/30/2020 1803 Local . 02 Pathologist provided ICD-10: N84.0, N72, N85.8, N80.0, D25.1 . 02 CPT . 114833 Specimen Comment: A courtesy copy of this report has been sent to [phone] Specimen Comment: Report sent to Performed at: 01 [facility] [address] [facility] [address], [place] [id number] MD Kenji Neri MD Phone: [phone] Performed at: 02 [facility] [address] [place], [place] [id number] MD Sascha Leavitt MD Phone: [phone]
== END 2020-01-31 15:34 | disposition home or self-care (01) ==
LOC: SURG 06:07 → 3 NORTH 11:15
PROVIDERS: ADMIT Obstetrics & Gynecology; ATTEND Obstetrics & Gynecology
DX: R19.00 Intra-abdominal and pelvic swelling, mass and lump, unspecified site (principal); I10 Essential (primary) hypertension; D64.9 Anemia, unspecified; Z85.3 Personal history of malignant neoplasm of breast; Z90.10 Acquired absence of unspecified breast and nipple
CPT/HCPCS: 36415; 58552; 80048; 85014; 85027; 86850; 86900; 86901; 96374; A7015; G0378; G0379; J0690; J1100; J2250; J2370; J2405; J2704; J2710; J3010; J3480; J3490; J7030; J7120; J1885

== ENCOUNTER → 2020-03-25 | Outpatient (CLI) | payer OTHER, BC ==
[~2020-03-25] MED LIST changes: +GADOTERATE 7.5 MMOL/15ML VIAL. IVP ONE; +HYDR-2761 PO
--- NOTE | 2020-03-25 14:20 | KCIC ---
MRI pelvis with and without IV contrast. INDICATION: Right pelvic mass. COMPARISON: Abdomen and pelvis CT with IV contrast of 12/04/2019 TECHNIQUE: Multiplanar multisequence MR imaging of the pelvis was performed with and without IV contrast utilizing 80 mL Dotarem IV. Sequences included T1, T2, STIR, diffusion-weighted imaging and dynamic postcontrast fat saturated T1 weighted imaging at 1.5 Marium. FINDINGS: The uterus is surgically absent. The left ovaries not seen. No inflammatory fluid collection is identified. At the right adnexa is an oval circumscribed 3.6 x 1.9 x 3.0 cm predominantly fatty mass showing circumferential rim enhancement with heterogeneous areas of internal enhancement. The mass follows fat on nearly all sequences. The urinary bladder is unremarkable. There is no pelvic adenopathy or other mass identified. The bowel shows scattered colonic diverticuli without findings of acute diverticulitis. No pelvic fluid collection is apparent. Bones and vessels are unremarkable. The visualized pelvic musculature reveal no significant additional abnormal findings. IMPRESSION: Status post hysterectomy, an oval 3.6 x 1.9 x 3.0 cm mass in the right adnexa most likely represents a benign cystic teratoma. If the patient has undergone a total hysterectomy (that includes a right oophorectomy), this oval mass in the right adnexa alternatively could represent an island of fat necrosis. This can be reassessed on follow-up ultrasound. Correlate with clinical history. No findings suspicious for pelvic malignancy . Electronically signed by: Jed Daugherty MD (03/25/2020 2:18 PM) [id number]
== END | disposition home or self-care (01) ==
LOC: KCIC MRI 12:28
PROVIDERS: ATTEND Obstetrics & Gynecology
DX: R19.00 Intra-abdominal and pelvic swelling, mass and lump, unspecified site (principal); K57.30 Diverticulosis of large intestine without perforation or abscess without bleeding; Z90.49 Acquired absence of other specified parts of digestive tract; Z90.711 Acquired absence of uterus with remaining cervical stump
CPT/HCPCS: 72197; A9575

== ENCOUNTER → 2020-07-14 | Outpatient (CLI) | payer OTHER, BC ==
[~2020-07-14] MED LIST changes: -GADOTERATE 7.5 MMOL/15ML VIAL. IVP ONE
--- NOTE | 2020-07-14 11:30 | RAD ---
EXAM: Right breast digital screening mammogram with tomosynthesis. HISTORY: 60-year-old female with a history of left breast cancer, status post left mastectomy, presen ts for annual mammography. TECHNIQUE: Full-field digital craniocaudal and mediolateral oblique 2D and 3D tomosynthesis images of the right breast are obtained for evaluation. Computer aided detection was applied. COMPARISON: 05/07/2015 and 07/25/2017 BREAST PARENCHYMAL DENSITY: Level B - Scattered fibroglandular densities. FINDINGS: There is a circumscribed nodular density within the anterior 5:30 position of the right dora ast, without a clear correlate on prior studies. There are additional areas of asymmetry and nodulari ty which are stable in appearance, allowing for differences in imaging technique. There is no suspici ous calcification or architectural distortion. IMPRESSION: BI-RADS Category 0: Incomplete. Additional imaging needed. RECOMMENDATION: Further evaluation with a right breast sonogram is recommended to assess a circumscri bed nodular density at the anterior 5:30 position. If your mammogram demonstrates that you have dense breast tissue, which could hide abnormalities, and if you have other risk factors for breast cancer that have been identified, you might benefit from s upplemental screening tests that may be suggested by your ordering physician. Dense breast tissue, i n and of itself, is a relatively common condition. This information is not provided to cause undue c oncern, but rather to raise your awareness and to promote discussion with your physician regarding th e presence of other risk factors, in addition to dense breast tissue. A report of your mammography re sults will be sent to you and your physician. You should contact your physician if you have any ques tions or concerns regarding this report. Mammography is a sensitive method for finding small breast cancers, but it does not detect them all a nd is not a substitute for careful clinical examination. A negative mammogram does not negate a clin ically suspicious finding and should not result in delay in biopsying a clinically suspicious abnorma lity. PQRS compliance statement - Patient information was entered into a reminder system with a target due date for the next mammogram. "Our facility is accredited by the [employer] Mammography Program." Electronically signed by: Lorna Quezada MD (07/14/2020 11:27 AM) [id number]
== END ==
LOC: MAMMO 10:37
PROVIDERS: ATTEND Internal Medicine
DX: Z12.31 Encounter for screening mammogram for malignant neoplasm of breast (principal); N64.89 Other specified disorders of breast
CPT/HCPCS: 77061

== ENCOUNTER → 2020-07-16 | Outpatient (CLI) | payer OTHER, BC ==
--- NOTE | 2020-07-16 12:17 | RAD ---
ADDENDUM #1 Recommend follow-up in 6 months. Electronically signed by: Jed Daugherty MD (07/17/2020 12:21 PM) [id number] ORIGINAL REPORT Examination: Limited right breast ultrasound. INDICATION: 60-year-old woman status post left mastectomy in 1999 presents for ultrasound evaluation of an oval mass in the lower inner anterior third right breast identified on recent screening mammogr aphy. COMPARISON: Mammograms of 05/07/2016, 07/25/2017 and 07/14/2020. TECHNIQUE: Grayscale and color Doppler imaging of the lower inner quadrant right breast was performed between the 5 and 6:00 positions. Sonographic survey of the right axilla was also pursued. FINDINGS: At the right 5:30 o'clock position 1.4 cm from the nipple margin is a parallel orientation 5 mm long circumscribed near anechoic mass in the superficial right breast showing no detectable internal blood flow. No sonographic evidence of right axillary adenopathy. IMPRESSION: Probably benign 5 mm mass representing a complicated cyst or intramammary lymph node at the right sup erior left 5:30 o'clock position. BI-RADS Category 3 Probably benign findings Recommend right diagnostic mammogram and possible targeted right breast ultrasound. Discussed with karla turk. Patient entered into a reminder system with targeted due date for next mammogram. Electronically signed by: Jed Daugherty MD (07/16/2020 12:15 PM) [id number]
== END ==
LOC: US 11:06
PROVIDERS: ATTEND Internal Medicine
DX: R92.8 Other abnormal and inconclusive findings on diagnostic imaging of breast (principal); N63.14 Unspecified lump in the right breast, lower inner quadrant
CPT/HCPCS: 76641

== ENCOUNTER → 2020-10-20 | Outpatient (CLI) | payer OTHER, BC ==
--- NOTE | 2020-10-20 17:10 | RAD ---
EXAM: MRI pelvis without contrast. HISTORY: Pelvic mass. TECHNIQUE: MRI of the pelvis was performed without intravenous contrast. COMPARISON: 03/25/2020, 12/04/2019. FINDINGS: A mass within the right hemipelvis or adnexa has macroscopic fat signal and measures 3.7 x 2.5 cm. This is increased from 3.1 x 2.1 cm. It is T2 hyperintense along its periphery, with a few ce ntral nonfat signal elements. There is no clear cystic component. The uterus is surgically absent. A T1 and T2 hyperintense nodule along the posterior aspect of the va ginal cuff measures 8 mm. This is new since the prior study. A 1.1 cm T2 hyperintense mass within the left spinal erector muscles overlying the sacrum suggests a small hemangioma. It is stable chronically. IMPRESSION: 1. A mostly fat signal mass within the right hemipelvis or adnexa has increased in size slowly over t he interceding year and now measures 3.7 x 2.5 cm. This may represent a dermoid. A low-grade liposarc el cannot be excluded given its stability. Ongoing management is recommended. 2. New 8 mm nodule along the vaginal cuff, most likely a complicated inclusion cyst. This can also be followed sonographically if there is persistent concern. Electronically signed by: Liam Marshall MD (10/20/2020 5:08 PM) [facility]
== END ==
LOC: MRI 08:07
PROVIDERS: ATTEND Surgery
DX: R19.00 Intra-abdominal and pelvic swelling, mass and lump, unspecified site (principal)
CPT/HCPCS: 72195

== ENCOUNTER → 2021-01-14 | Outpatient (CLI) | payer OTHER, BC ==
--- NOTE | 2021-01-14 18:16 | RAD ---
EXAMINATION: MG DIGITAL UNILAT DIAGNOSTIC MAMMO WITH MK, US BREAST RT History: History of left breast cancer post mastectomy. Six-month follow-up of probably benign right mass. Comparison: Right breast ultrasound 12/14/2020. Mammogram 07/14/2020, 120 03/16/2018, 05/07/2016. Technique: Right breast digital diagnostic mammogram views were obtained. Spot compression views were obtained. CAD was utilized. 3-D tomosynthesis images were acquired. Focused right breast ultrasound at 5:30 was performed. Findings: Breast Tissue Density B : There are scattered areas of fibroglandular density. The 4 mm circumscribed nodule at 5:30, 4 cm from the nipple is again seen on CC view although not wel l seen on MLO view and is less conspicuous on spot compression views. Ultrasound of the right breast in the area of concern was performed. The 5 mm circumscribed anechoic cyst in the retroareolar region with a few internal echoes or debris. There is no cyst or mass at 5:3 0, 4 cm from the nipple. Normal axillary lymph nodes. IMPRESSION: Unchanged probably benign 5 mm cyst or complicated cyst at 5:30 in the retroareolar right breast. No sonographic abnormality at 5:30, 4 cm from the nipple to correlate with nodule on mammogram. Recommen d 6 month follow-up mammogram and ultrasound to ensure stability. BI-RADS category 3: Probably benign. Recommend 6 month follow-up right breast mammogram and ultrasound. The images were reviewed with computer aided detection. Patient information is entered into the reminder system with a target due date for the next screening mammogram. Mammography is the most sensitive method for finding small breast cancers, but it does not detect the m all and is not a substitute for careful clinical examination. A negative mammogram does not negate a clinically suspicious finding and should not result in delay in biopsying a clinically suspicious a bnormality. "Our facility is accredited by the [employer] Mammography Program." Electronically signed by: Fany Ibrahim MD (01/14/2021 6:14 PM) [id number]
== END ==
LOC: MAMMO 12:10
PROVIDERS: ATTEND Internal Medicine
DX: Z09 Encounter for follow-up examination after completed treatment for conditions other than malignant neoplasm (principal); N63.14 Unspecified lump in the right breast, lower inner quadrant; R92.8 Other abnormal and inconclusive findings on diagnostic imaging of breast
CPT/HCPCS: 76641; 77065; G0279; 77061

== ENCOUNTER → 2021-07-16 | Outpatient (CLI) | payer OTHER, BC ==
--- NOTE | 2021-07-16 10:00 | RAD ---
PROCEDURE: MG DIGITAL UNILAT DIAGNOSTIC MAMMO WITH MK, US BREAST RT HISTORY: The patient is 61 years old and is seen for Reason: 6 MO FU / Spl. Instructions: / History: . Left mastectomy. COMPARISON: January 14, 2021 and July 16, 2020 TECHNIQUE: CC and MLO views of right breast obtained. Images were processed by the [employer] uter-aided detection system. Right breast ultrasound was also performed. DENSITY: There are scattered fibroglandular densities. FINDINGS: Right mammogram: Unchanged small right retroareolar well-circumscribed mass. No developing mass, susp icious calcifications or architectural distortion. Right ultrasound: Unchanged cyst within the right breast 5:30 position measures 3 x 3 mm. IMPRESSION: Unchanged right breast fibrocystic changes. Recommend return to annual screening. Recommend annual screening mammograms per [employer] guidelines. She will be due in one year. BI-RADS category 2 Benign Patient entered into a reminder system for annual screening mammogram. Electronically signed by: Tito Swenson DO (07/16/2021 9:58 AM) [id number]
--- NOTE | 2021-07-16 10:00 | RAD ---
PROCEDURE: MG DIGITAL UNILAT DIAGNOSTIC MAMMO WITH MK, US BREAST RT HISTORY: The patient is 61 years old and is seen for Reason: 6 MO FU / Spl. Instructions: / History: . Left mastectomy. COMPARISON: January 14, 2021 and July 16, 2020 TECHNIQUE: CC and MLO views of right breast obtained. Images were processed by the [employer] uter-aided detection system. Right breast ultrasound was also performed. DENSITY: There are scattered fibroglandular densities. FINDINGS: Right mammogram: Unchanged small right retroareolar well-circumscribed mass. No developing mass, susp icious calcifications or architectural distortion. Right ultrasound: Unchanged cyst within the right breast 5:30 position measures 3 x 3 mm. IMPRESSION: Unchanged right breast fibrocystic changes. Recommend return to annual screening. Recommend annual screening mammograms per [employer] guidelines. She will be due in one year. BI-RADS category 2 Benign Patient entered into a reminder system for annual screening mammogram. Electronically signed by: Tito Swenson DO (07/16/2021 9:58 AM) [id number]
== END ==
LOC: MAMMO 09:04
PROVIDERS: ATTEND Internal Medicine
DX: N60.01 Solitary cyst of right breast (principal); N63.10 Unspecified lump in the right breast, unspecified quadrant
CPT/HCPCS: 76641; 77065; G0279; 77061